=== PATIENT | male | born 1970 | race Two or more races ===

== ENCOUNTER 2024-06-27 16:27 | Emergency (ER) | payer MEDICAID, SELFPAY ==
[2024-06-27 16:29] VITALS: BMI 31.9
[2024-06-27 16:52] VITALS: BP 142/88; PULSE 99; RESP 18; TEMP 36.9; O2SAT 97; BMI 30.1
--- NOTE | 2024-06-27 17:10 | XR_ITS ---
Examination: Clavicle 2 views, left Technique: Clavicle AP, angled up AP, 2 views Exam date and time: June 27, 2024 1723 hours INDICATIONS: Left clavicle pain today. FINDINGS: No clavicle fracture. No AC joint separation Moderate narrowing glenohumeral joint IMPRESSION: Moderate narrowing glenohumeral joint
--- NOTE | 2024-06-27 17:10 | XR_ITS ---
Examination: PA lateral chest 2 views TECHNIQUE: Upright PA lateral chest 2 views Exam date and time: June 27, 2024 1727 hours INDICATIONS: Chest pain today. FINDINGS: Normal heart size Lungs are clear. The osseous structures are intact IMPRESSION: No active disease
--- NOTE | 2024-06-27 17:11 | PD.EDRME ---
Rapid Medical Screening Exam RME Arrival date/time: 06/27/24 16:27 53-year-old male presents to the emergency department complaints of left clavicular pain and upper chest wall pain for approximately 1 month Chief Complaint: Neck Pain/Injury Time Seen by Provider: 06/27/24 17:05 Vital signs: Vital Signs Temperature 98.5 F 06/27/24 16:52 Pulse Rate 99 06/27/24 16:52 Respiratory Rate 18 06/27/24 16:52 Blood Pressure 142/88 H 06/27/24 16:52 Pulse Oximetry (%) 97 06/27/24 16:52 Oxygen Delivery Method Room Air 06/27/24 16:52
[2024-06-27 17:55] LABS: Basophils % (Auto) 1 % (0-2.5); Eosinophils # (Auto) 0.3 Thou/mm3 (0.0-0.5); Eosinophils % (Auto) 4 % (0-10); Hematocrit 48.1 % (41.0-53.0); Hemoglobin 17.4 g/dL (13.5-16.0); Immature Granulocytes % (Auto) 1 % (0-0); Immature Granulocytes Auto 0.05 Thou/mm3 (0.00-0.00); Lymphocytes # (Auto) 3.1 Thou/mm3 (1.0-4.8); Lymphocytes % (Auto) 40 % (10-50); Mean Corpuscular HGB Conc 36.2 g/dl (31.0-37.0); Mean Corpuscular Hemoglobin 29.8 pg (25.0-35.0); Mean Corpuscular Volume 83 fL (80-100); Monocytes # (Auto) 0.7 Thou/mm3 (0.0-0.8); Monocytes % (Auto) 9 % (0-12); Neutrophils # (Auto) 3.5 Thou/mm3 (1.8-7.7); Neutrophils % (Auto) 45 % (37-80); Nucleated Red Blood Cell % 0 /100 WBC (0); Platelet Count 228 Thou/mm3 (140-440); RDW Standard Deviation 34.9 fL (35.1-43.9); Red Blood Count 5.83 Miln/mm3 (4.50-5.90); White Blood Count 7.7 Thou/mm3 (3.8-10.6)
[2024-06-27 18:19] LABS: Alanine Aminotransferase 53 U/L (10-49); Albumin, Serum 4.7 gm/dL (3.5-5.0); Albumin/Globulin Ratio 1.7 (1.2-2.2); Alkaline Phosphatase 100 U/L (46-116); Anion Gap 10 (7-16); Aspartate Amino Transferase 26 U/L (0-34); BUN/Creatinine Ratio 9 Ratio (12-20); Bilirubin,Total 0.5 mg/dL (0.3-1.2); Blood Urea Nitrogen 13 mg/dL (9-23); Calcium 10.1 mg/dL (8.3-10.6); Calcium (Corrected) 10.1 mg/dL (8.5-10.1); Carbon Dioxide 26.3 mMol/L (20.0-31.0); Chloride 98 mMol/L (98-107); Creatinine (Component) 1.5 mg/dL (0.6-1.3); Estimated Creatinine Clearance 62.7 mL/min (>60); Globulin 2.7 gm/dL (2.3-3.5); Glucose 365 mg/dL (74-106); Osmolality,Calculated 283 (275-295); Potassium 4.5 mMol/L (3.4-5.1); Sodium 134 mMol/L (136-145); Total Protein 7.4 gm/dL (5.7-8.2); Troponin I < 0.020 ng/mL (0.0-0.045); eGFR 56 See Note
[2024-06-27 20:19] VITALS: BP 136/90; PULSE 93; RESP 18; O2SAT 98
--- NOTE | 2024-06-27 21:32 | EDNOTE_ITS ---
ED Neck Injury Pain RME/HPI General Chief Complaint: Neck Pain/Injury Stated Complaint: NECK PAIN X 1 MONTH Time Seen by Provider: 06/27/24 17:05 Source: patient Arrival date/time: 06/27/24 16:27 Mode of arrival: ambulatory Limitations: no limitations RME / HPI RME / HPI Narrative: 06/27/24 16:27 53-year-old male presents to the emergency department complaints of left clavicular pain and upper chest wall pain for approximately [address] Armando?s Main ED Evaluation: 53-year-old male with h/o HTN, GERD, who presents to the ED for complaints of left clavicle pain. Patient denies any trauma or injury. 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 He denies any pain when rising his left arm. Denies any other associated symptoms or medical complaints. He is allergic to ibuprofen and takes tylenol for pain relief. Related Data Previous Rx's ?Medication ?Instructions ?Recorded acetaminophen 500 mg capsule 1,000 mg (2 x 500 mg) PO TID #30 04/27/23 caps acetaminophen 500 mg capsule 1,000 mg (2 x 500 mg) PO Q8HR PRN 08/27/23 pain #30 caps hydrocodone 5 mg-acetaminophen 325 1 tab PO BID PRN pa in #6 tabs 08/28/23 mg tablet oxycodone 5 mg capsule 5 mg PO BID PRN pain 4 days #7 caps 06/27/24 Allergies Allergy/AdvReac Type Severity Reaction Status Date / Time ibuprofen Allergy Mild Rash Verified 06/27/24 16:34 Review of Systems Review of Systems Systems Reviewed: All systems reviewed, normal except as documented Past Medical History Past Medical History NEUROLOGIC: Negative Neurological Disorders CARDIAC: Positive Hypertension; Negative Cardiac Disorders or Congestive Heart Failure RESPIRATORY: Negative Chronic Obstructive Pulmonary Disease (COPD) or Asthma GASTROINTESTINAL: Positive Gastrointestinal Disorders and Gastroesophageal Reflux Disease GENITOURINARY: Positive Kidney Stones; Negative Renal Disease ENDOCRINE: Negative Diabetes Mellitus Type 1 or Diabetes Mellitus Type 2 HEMATOLOGIC: Negative Sickle Cell Disease Social History SMOKING STATUS: Former smoker ED Exam Narrative Physical exam: GENERAL APPEARANCE: alert and oriented x 4, well-developed, well-nourished, no acute distress VITALS: All vitals were reviewed and the pulse ox is 98% on room air, which is normal according to my interpretation. HEENT: Normocephalic, atraumatic; pupils equal, round, reactive to light; EOMI; mucous membranes pink, moist; oropharynx clear NECK: Supple LUNGS: CTABL; no wheezes, no rales, no rhonchi HEART: Regular rate, regular rhythm; normal S1, S2; no murmurs ABDOMEN: non distended; normal BS; soft, no tenderness, no guarding, no rebound; no masses, no organomegaly, no hernia BACK: no CVA tenderness EXTREMITIES: atraumatic; no edema NEUROLOGIC: awake; alert and oriented x4; cranial nerves II-XII grossly intact; no focal sensory or motor deficits PSYCHIATRIC: appropriate mood and affect SKIN: warm, dry, normal color; no rashes General Limitations: Present no limitations Course Course Course Narrative: CXR is ordered for determining etiology of mild chest pain. Quality Measures none Orders Category Date Time Status XR chest 2V Stat Exams 06/27/24 17:10 Completed XR clavicle LT Stat Exams 06/27/24 17:10 Completed CBC Stat Lab 06/27/24 17:39 Completed CMP [Comprehensive Metabolic Panel] Stat Lab 06/27/24 17:39 Completed Troponin I Stat Lab 06/27/24 17:39 Completed Vital Signs Vital signs: Vital Signs Temperature 98.5 F 06/27/24 16:52 Pulse Rate 99 06/27/24 16:52 Respiratory Rate 18 06/27/24 16:52 Blood Pressure 142/88 H 06/27/24 16:52 Pulse Oximetry (%) 97 06/27/24 16:52 Oxygen Delivery Method Room Air 06/27/24 16:52 Neck Pain MDM Narrative MDM Narrative:: Scribe Attestation: I, Roland Benz, am scribing for and in the presence of Dr. Armando. Provider Notation: Although this document has been carefully reviewed, there may still be some phonetic and other typographical errors. These errors are purely grammatical due to imperfections in the software program and should not be construed in any way to compromise the substance of the patient's medical care during this visit. Patient data External records reviewed:: [facility] previous records Clinical information provided by:: patient Social determinants that could affect healthcare access:: none Patient has the following chronic illnesses:: See PMH How is presenting disease/condition affected by chronic disease/condition?: uneffected by Evaluation data The following diagnostics were reviewed and interpreted by me:: lab results and radiology exam(s) Lab and/or radiology exams considered but not ordered:: na Interpretation Summary: I personally reviewed the radiology data and agree with the radiologist's interpretation. Examination: PA lateral chest 2 views TECHNIQUE: Upright PA lateral chest 2 views Exam date and time: June 27, 2024 1727 hours INDICATIONS: Chest pain today. FINDINGS: Normal heart size Lungs are clear. The osseous structures are intact IMPRESSION: No active disease Examination: Clavicle 2 views, left Technique: Clavicle AP, angled up AP, 2 views Exam date and time: June 27, 2024 1723 hours INDICATIONS: Left clavicle pain today. FINDINGS: No clavicle fracture. No AC joint separation Moderate narrowing glenohumeral joint IMPRESSION: Moderate narrowing glenohumeral joint Medications / Prescriptions Medications or Prescriptions considered but not ordered:: na Medication administrations:: as above, if any Consultations Consultation(s) initiated? (list below): No Diagnosis Neck Differential Diagnosis: other (Clavicular fx, AC separation, rotator cuff injury, deltoid muscle strain) Most likely diagnosis given after review of the tests above:: See clinical impression below Admission Indicated Admission indicated?: not indicated Admission Request Was there a request for admission?: No Disposition Plan Disposition Plan: Discharge Discharge Attestation Discharge Attestation: The patient and all family members were given an opportunity to ask questions and understood the discharge instructions. Discharge instructions specifically effects, indications for sooner follow up or return to the emergency department, and the expected course of current diagnosis. Patient condition: Stable Discharge Plan Plan Patient Disposition: HOME (Self Care) Disposition Comment: Stable for discharge home Patient condition on transfer: Stable Prescriptions/Referrals Prescriptions/Med Rec: New oxycodone 5 mg capsule 5 mg PO BID MDD 2 tabs PRN (Reason: pain) 4 Days Qty: 7 0RF No Action acetaminophen 500 mg capsule 1,000 mg PO TID Qty: 30 0RF acetaminophen 500 mg capsule 1,000 mg PO Q8HR PRN (Reason: pain) Qty: 30 0RF hydrocodone-acetaminophen 5-325 mg tablet 1 tab PO BID MDD 10mg PRN (Reason: pain) Qty: 6 0RF Referrals: [facility] [Outside] - In 1 week Problem List Clinical Impression: Clavicle pain Patient/Caregiver Discharge Instructions Discharge Activity: activity as tolerated Education Materials: The Shoulder Joint Additional Instructions: Please return to the emergency department if you have any worsening or any further medical problems and we will help you. Otherwise you should follow-up with your primary care doctor within the next several days. It is very important that if this pain continues that you return to the ER so that we can perform more tests. You should take 2 tabs of the acetaminophen 500 mg and do that every 6 hours for pain. Unfortunately you cannot have ibuprofen because you are allergic to it. So I have called in a small prescription for a medicine called oxycodone. You can take up to 1 tab twice a day. You cannot drive after taking this medicine and you should not take it before going to work. It is best taken right before you go to bed. Print Language: Grenadian Stand Alone Forms: Alejandra Award Info., Patient Portal Info Letter
[2024-06-27 21:40] VITALS: BP 135/86; PULSE 76; RESP 18; TEMP 36.7; O2SAT 98
== END 2024-06-27 21:42 | disposition home or self-care (01) ==
PROVIDERS: Nurse Practitioner Primary Care; Emergency Provider Emergency Medicine
DX: M25.812 Other specified joint disorders, left shoulder (principal); R07.89 Other chest pain
CPT/HCPCS: 36415; 71046; 73000; 80053; 84484; 85025; 99283

== ENCOUNTER 2024-12-04 10:07 | Outpatient (AMB) | payer MEDICAID, SELFPAY ==
--- NOTE | 2024-12-04 10:26 | XR_ITS ---
Examination: Bilateral AP knees single view Left knee PA lateral axial 3 views TECHNIQUE: Bilateral AP knees standing single view Left knee PA standing flexion, standing lateral, axial left knee 3 views total 4 views Date and time: December 04, 2024 1047 hours, comparison August 27, 2023 INDICATIONS: Left knee pain 2 years. FINDINGS: Moderate osteopenia Mild narrowing medial joint space right knee Moderate narrowing medial joint space left knee Moderate osteoarthritis left patellofemoral joint No fractures IMPRESSION: Moderate narrowing medial and left patellofemoral joints
--- NOTE | 2024-12-04 10:26 | PD.ORTHCLVIS ---
Vital signs 12/04/24 11:12 Height 1.73 m Height Method Measured Weight 88.706 kg Weight Measurement Method Standing Scale BMI 29.7 BP 145/87 H Blood Pressure Source Automatic Cuff Blood Pressure Location Left Upper Arm Position Sitting Respiration 18 Pulse 70 Pulse Source Monitor Temp 97.4 F Temp Source Temporal Artery Scan Pulse Oximetry (%) 96 Oxygen Delivery Method Room Air Med/Allergies Allergies & Medications Allergies ibuprofen Allergy (Mild, Verified 12/04/24 11:14) Rash Medication Reconciliation acetaminophen 650 mg tablet,extended release 650 mg PO Q12H 12/04/24 [History Confirmed 12/04/24] losartan 50 mg-hydrochlorothiazide 12.5 mg tablet 1 tab PO QDAY 12/04/24 [History Confirmed 12/04/24] metformin 1,000 mg tablet 1,000 mg PO QDAY 12/04/24 [History Confirmed 12/04/24] omeprazole 20 mg tablet,delayed release 20 mg PO QDAY 12/04/24 [History Confirmed 12/04/24] Exam Exam Patient is in no acute distress and is cooperative with the examination today. Breathing is nonlabored. Patient has a normal mood and affect. Bilateral extremities were evaluated and demonstrates sensation intact to light touch. Palpable pedal pulses are present. No significant edema is present. Bilateral hips were examined. The patient has no pain with log roll of the hips. Internal rotation to 30 degrees and external rotation to 30 degrees is painless. Negative FADIR. Right knee was examined today. The right knee is in reasonable alignment. Range of motion from 0-120 degrees. Knee is stable to varus and valgus as well as AP translation with <5mm. Patient has a negative McMurrays. There is no pain with patellofemoral compression and no crepitus noted. The knee is nontender to palpation. Left knee was examined today. The left knee is in varus alignment. Range of motion from 0-115 degrees. Knee is stable to varus and valgus as well as AP translation with <5mm. Patient has a negative McMurrays. There is no pain with patellofemoral compression and no crepitus noted. The knee is tender to palpation medially. Nonweightbearing x-rays from [facility] imaging from last year were reviewed. This demonstrates mild joint space narrowing. Assessment and Plan Problem List (1) Arthritis of left knee: Status: Acute Plan: Patient is a 54-year-old male with left knee pain and left knee arthritis. The last nonweightbearing x-rays demonstrate mild joint space narrowing and arthritis. We will get new x-rays that are weightbearing. We would like to see him back for injections at the next visit. We Will need authorization for injections Office Procedures GNS Level of Care Nursing/Assessment Patient Status: Initial/New Patient Nursing Assessment/Reassesment: Medication Reconciliation, Orthostatic Vitals, Update PMH in EMR and Vital Signs Coordination of Care: Complex Care and Chronic Disease 1-5, Education Complex Pt/Fam, Consent,records obtained, informed consent, Education Simp Pt/Fam, Lab and Imaging orders, Results/Orders obtained and Staff clarify orders Special Needs: Language special needs New Patient Charge New Patient Point Assignment: 1134 New Patient Point Charge: EXHIBIT DISPLAY REPRESENTATIVE Level 4 (8299-6061) MA Intake Visit Data Collection New Patient or Established: New Patient (never been to [facility]) Reason for Visit:: DERANGEMENT LEFT KNEE Seen by Clinical Staff ONLY (RN/MA): No [employer]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 PCP or OBGYN visit in last 3 months: Yes Hx Now: No Do You Feel Safe at Home: Yes Authorities Contacted: N/A Questionairres Past Medical History Past Medical History Have you ever been diagnosed with any of the following: Cardiology Problems Congestive Heart Failure: No Hypertension: Yes Respiratory Problems Chronic Obstructive Pulmonary Disease (COPD): No Asthma: No Stomache/Intestinal Problems Gastroesophageal Reflux Disease: Yes Genital/Urinary Problems Renal Disease: No Kidney Stones: Yes Endocrine Problems Diabetes Mellitus Type 1: No Diabetes Mellitus Type 2: No Blood Problems Sickle Cell Disease: No Subjective Visit Visit for: new patient and knee Immunization / Flu Flu Vaccine in the Last 12 Months: Yes Flu Vaccine Exclusion Criteria: Already Received History of Present Illness Chief complaint: left knee pain Date of injury / onset of symptoms: 2 YEARS Patient is a pleasant 54working male with significant left knee pain. Been ongoing for several years. Has had several injections the last about 3 months. Last injection was 1 month ago. He has anaphylactic shock status and anti-inflammatories and cannot take them. Personal History Red flag PMH: none BMI Counceling provided: Yes Pain Pain level (0-10): 7 Pain location: inside (medial) Pain quality: sharp Associated signs & symptoms: none Ambulatory data Ambulatory device: none Treatments Number of previous injections: 2 Improvement with previous injections: Yes Number of Physical Therapy sessions: 7 Improvement with PT: Yes Improvement with NSAIDS: n/a Review of Systems Review of Systems: All systems negative unless otherwise noted in HPI.
[2024-12-04 11:12] VITALS: BP 145/87; PULSE 70; RESP 18; TEMP 36.3; O2SAT 96; BMI 29.7
== END 2024-12-04 10:33 | disposition home or self-care (01) ==
LOC: HODSRG 10:07
PROVIDERS: Supervising Provider Orthopaedic Surgery Adult Reconstructive Orthopaedic Surgery; Visit Provider Orthopaedic Surgery Adult Reconstructive Orthopaedic Surgery
DX: M17.12 Unilateral primary osteoarthritis, left knee (principal); M25.562 Pain in left knee; I10 Essential (primary) hypertension; K21.9 Gastro-esophageal reflux disease without esophagitis; Z87.442 Personal history of urinary calculi
CPT/HCPCS: 73564; 99204; G0463

== ENCOUNTER 2025-02-14 13:41 | Outpatient (AMB) | payer MEDICAID, SELFPAY ==
--- NOTE | 2025-02-14 13:54 | ORTHONT_ITS ---
Vital signs 02/14/25 13:55 Height 1.73 m Height Method Stated Weight 89.868 kg Weight Measurement Method Standing Scale BMI 30.0 BP 150/82 H Blood Pressure Source Automatic Cuff Blood Pressure Location Left Upper Arm Position Sitting Respiration 19 Pulse 75 Pulse Source Monitor Temp 97.8 F Temp Source Temporal Artery Scan Pulse Oximetry (%) 95 Oxygen Delivery Method Room Air Med/Allergies Allergies & Medications Allergies ibuprofen Allergy (Mild, Verified 02/14/25 13:55) Rash Medication Reconciliation acetaminophen 650 mg tablet,extended release 650 mg PO Q12H 12/04/24 [History Confirmed 02/14/25] losartan 50 mg-hydrochlorothiazide 12.5 mg tablet 1 tab PO QDAY 12/04/24 [History Confirmed 02/14/25] metformin 1,000 mg tablet 1,000 mg PO QDAY 12/04/24 [History Confirmed 02/14/25] omeprazole 20 mg tablet,delayed release 20 mg PO QDAY 12/04/24 [History Confirmed 02/14/25] Exam Exam Patient is in no acute distress and is cooperative with the examination today. Breathing is nonlabored. Patient has a normal mood and affect. Bilateral extremities were evaluated and demonstrates sensation intact to light touch. Palpable pedal pulses are present. No significant edema is present. Bilateral hips were examined. The patient has no pain with log roll of the hips. Internal rotation to 30 degrees and external rotation to 30 degrees is painless. Negative FADIR. Right knee was examined today. The right knee is in reasonable alignment. Range of motion from 0-120 degrees. Knee is stable to varus and valgus as well as AP translation with <5mm. Patient has a negative McMurrays. There is no pain with patellofemoral compression and no crepitus noted. The knee is nontender to palpation. Left knee was examined today. The left knee is in varus alignment. Range of motion from 0-115 degrees. Knee is stable to varus and valgus as well as AP translation with <5mm. Patient has a negative McMurrays. There is no pain with patellofemoral compression and no crepitus noted. The knee is tender to palpation medially. Nonweightbearing x-rays from [facility] imaging from last year were reviewed. This demonstrates mild joint space narrowing. Assessment and Plan Problem List (1) Arthritis of left knee: Status: Acute Plan: Patient is a 54-year-old male with left knee pain and left knee arthritis. The last weightbearing x-rays demonstrate mild joint space narrowing and arthritis. We will get new x-rays that are weightbearing. Recommend knee cortisone injection as patient would like to proceed with conservative treatment at this time. The risks and benefits of the procedure were reviewed with the patient and patient gave verbal consent to continue with the procedure. Procedure: performed by Dr. Becker Using sterile technique the left knee was thoroughly prepped with alcohol, and approximately 1 cc of Depo-Medrol 80mg/mL and 4 cc of 0.2% ropivacaine was injected without resistance into the medial tibial femoral joint space. The patient tolerated the procedure. Office Procedures GNS Level of Care Nursing/Assessment Patient Status: Established Patient Nursing Assessment/Reassesment: Medication Reconciliation, Update PMH in EMR and Vital Signs Coordination of Care: Complex Care and Chronic Disease 1-5, Education Complex Pt/Fam, Consent,records obtained, informed consent, Results/Orders obtained and Staff clarify orders Special Needs: Language special needs Established Patient Charge Established Patient Point Assignment: 95 Established Patient Point Charge: EP Level 3 (80-115) Surgical Proc/IM SQ injection Minor Surgical Procedure: Yes (KNEE INJECTION) Medication Given Medication Given Medication Given: Yes Documented Dose Given: 1 Route: Infiitration Medication Given Medication Given Medication Given: Yes Documented Dose Given: 4 Route: Infiitration Office Meds methylprednisolone acetate 80 mg/mL suspension for injection Performing Provider: Chele Becker MD Performing Location: [facility] Administered by: Chele Becker MD on 02/14/25 14:18 Dose Route Admin Location Dispensed Lot Number Expiration Date Pack age [facility] Medication Aid 80 mg intra-articular 1 mL [id number] 10/24/26 [address]-8 [id number] [employer] ropivacaine (PF) 2 mg/mL (0.2 %) injection solution Performing Provider: Chele Becker MD Performing Location: [facility] Administered by: Chele Becker MD on 02/14/25 14:18 Dose Route Admin Location Dispensed Lot Number Expiration Date Pack age [facility] Medication Aid 20 mL Infiltration 20 mL [id number] 04/26/27 53659-266-06 [id number] [facility] Intake Visit Data Collection New Patient or Established: Established Patient (seen at [facility] within 3 years) Reason for Visit:: DERANGEMENT LEFT KNEE Seen by Clinical Staff ONLY (RN/MA): No 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 PCP or OBGYN visit in last 3 months: Yes Hx Now: No Do You Feel Safe at Home: Yes Authorities Contacted: N/A Questionairres Past Medical History Past Medical History Have you ever been diagnosed with any of the following: Cardiology Problems Congestive Heart Failure: No Hypertension: Yes Respiratory Problems Chronic Obstructive Pulmonary Disease (COPD): No Asthma: No Stomache/Intestinal Problems Gastroesophageal Reflux Disease: Yes Genital/Urinary Problems Renal Disease: No Kidney Stones: Yes Endocrine Problems Diabetes Mellitus Type 1: No Diabetes Mellitus Type 2: No Blood Problems Sickle Cell Disease: No Subjective Visit Visit for: follow up visit and knee (LEFT) Immunization / Flu Flu Vaccine in the Last 12 Months: Yes Flu Vaccine Exclusion Criteria: Already Received History of Present Illness Chief complaint: left knee pain Date of injury / onset of symptoms: 2 YEARS Patient is a pleasant 54working male with significant left knee pain. Been ongoing for several years. Has had several injections withthe last about 3 months. He has anaphylactic shock with anti-inflammatories and cannot take them. He is getting over 3 months of relief with the last injections Personal History Red flag PMH: none BMI Counceling provided: Yes Pain Pain level (0-10): 7 Pain location: inside (medial) Pain quality: sharp Associated signs & symptoms: none Ambulatory data Ambulatory device: none Treatments Number of previous injections: 2 Improvement with previous injections: Yes Number of Physical Therapy sessions: 7 Improvement with PT: Yes Improvement with NSAIDS: n/a Review of Systems Review of Systems: All systems negative unless otherwise noted in HPI.
[2025-02-14 13:55] VITALS: BP 150/82; PULSE 75; RESP 19; TEMP 36.6; O2SAT 95
== END 2025-02-14 14:11 | disposition home or self-care (01) ==
LOC: HODSRG 13:41
PROVIDERS: Supervising Provider Orthopaedic Surgery Adult Reconstructive Orthopaedic Surgery; Visit Provider Orthopaedic Surgery Adult Reconstructive Orthopaedic Surgery
DX: M25.562 Pain in left knee (principal); M17.12 Unilateral primary osteoarthritis, left knee; M25.862 Other specified joint disorders, left knee; I10 Essential (primary) hypertension
CPT/HCPCS: 20610; 99213; J1010; J2795; G0463

== ENCOUNTER 2025-03-27 09:45 | Emergency (ER) | payer MEDICAID, SELFPAY ==
[2025-03-27 09:46] VITALS: BMI 34.1
[2025-03-27 09:57] VITALS: BP 156/92; PULSE 65; RESP 18; TEMP 36.8; O2SAT 97; BMI 29.6
--- NOTE | 2025-03-27 09:58 | XR_ITS ---
Examination: CT abdomen and pelvis without contrast. Coronal 3-D reconstructions. Sagittal 2-D reconstructions. Date and time of exam: March 27, 2025, 1051 hours, comparison April 27, 2023 INDICATIONS: Left lower quadrant abdominal pain beginning 3 days ago, history bilateral renal calculi, history 3 mm calculus in the urinary bladder on CT examination April 27, 2023 CTDI: vol (mGy): 7.63 DLP: (mGycm): 481 Technique: Axial images of the abdomen have been obtained, 3 mm slice thickness Intravenous contrast material has not been administered. Low dose protocols were performed. One or more of the following dose reduction techniques were used; automated exposure control, adjustment of the mA and/or KV according to patient size, use of iterative reconstruction technique. Findings: No visualized liver or splenic lesion No gallstones No pancreatic mass or peripancreatic edema Normal adrenal glands Mild renal scar formation 34 mm left renal cyst, 23 mm right renal cyst 5 mm 2 mm left renal calculi 3 mm 1 mm right renal calculi Mild bilateral hydronephrosis although no ureteral calculi Normal appendix No bowel obstruction or diverticulitis Normal seminal vesicles No significant prostatomegaly Urinary bladder wall thickening up to 11 mm Moderate osteopenia IMPRESSION: Bilateral renal calculi Mild bilateral hydronephrosis although no ureteral calculi, consider urinary tract infection Cystitis pattern Normal appendix
--- NOTE | 2025-03-27 10:04 | PD.EDABDPN ---
ED Abdominal Pain RME/HPI General Chief Complaint: Abdominal Pain Stated complaint: LOWER ABD PAIN X3DAYS WITH NAUSEA Time seen by provider: 03/27/25 09:49 Arrival date/time: 03/27/25 09:45 54-year-old male presents to the emergency department today for complaints of left lower quadrant abdominal pain ongoing x 3 days. Patient ports no chest pain no shortness of breath no upper abdominal pain Limitations: no limitations Related Data Home Medications ?Medication ?Instructions ?Recorded ?Confirmed acetaminophen 650 mg 650 mg PO Q12H 12/04/24 02/14/25 tablet,extended release losartan 50 mg-hydrochlorothiazide 1 tab PO QDAY 12/04/24 02/14/25 12.5 mg tablet metformin 1,000 mg tablet 1,000 mg PO QDAY 12/04/24 02/14/25 omeprazole 20 mg tablet,delayed 20 mg PO QDAY 12/04/24 02/14/25 release Previous Rx's ?Medication ?Instructions ?Recorded hydrocodone 5 mg-acetaminophen 325 1 tab PO BID PRN pain #8 tabs 03/27/25 mg tablet metoclopramide HCl 10 mg tablet 10 mg PO Q6H PRN nausea and 03/27/25 (Reglan) vomiting #30 tabs Allergies Allergy/AdvReac Type Severity Reaction Status Date / Time ibuprofen Allergy Mild Rash Verified 03/27/25 09:48 Review of Systems Review of Systems Systems Reviewed: All systems reviewed, normal except as documented Constitutional Constitutional: Reports system reviewed and no additional complaints, except as documented, Denies fever(s) and Denies headache(s) Eyes Eyes: Reports system reviewed and no additional complaints, except as documented and Denies blurry vision ENT Ears, Nose, Mouth, and Throat: Reports system reviewed and no additional complaints, except as documented, Denies headache(s), Denies nasal congestion and Denies nasal discharge Cardiovascular Cardiovascular: Reports system reviewed and no additional complaints, except as documented, Denies chest pain and Denies dyspnea Respiratory Respiratory: Reports system reviewed and no additional complaints, except as documented, Denies chest congestion, Denies cough and Denies dyspnea Gastrointestinal Gastrointestinal: Reports system reviewed and no additional complaints, except as documented and Reports abdominal pain Integumentary/Breasts Skin/Breast: Reports system reviewed and no additional complaints, except as documented and Denies rash Neurologic Neurologic: Reports system reviewed and no additional complaints, except as documented, Reports as per HPI and Denies headache(s) Past Medical History Past Medical History NEUROLOGIC: Negative Neurological Disorders CARDIAC: Positive Hypertension; Negative Cardiac Disorders or Congestive Heart Failure RESPIRATORY: Negative Chronic Obstructive Pulmonary Disease (COPD) or Asthma GASTROINTESTINAL: Positive Gastrointestinal Disorders and Gastroesophageal Reflux Disease GENITOURINARY: Positive Kidney Stones; Negative Renal Disease ENDOCRINE: Negative Diabetes Mellitus Type 1 or Diabetes Mellitus Type 2 HEMATOLOGIC: Negative Sickle Cell Disease Social History SMOKING STATUS: Never smoker ED Exam General Limitations: Present no limitations General appearance: Present alert and in no apparent distress Head Head exam: Present atraumatic Eye Eye exam: Present normal appearance, PERRL and EOMI ENT ENT exam: Present normal exam, normal oropharynx and mucous membranes moist Neck Neck exam: Present normal inspection, full ROM and trachea midline Chest Chest inspection: Present normal inspection and symmetric chest wall rise Respiratory Respiratory exam: Present normal lung sounds bilaterally Cardiovascular Cardiovascular exam: Present regular rate, normal rhythm and normal heart sounds Abdominal Exam Abdominal exam: Present soft, tenderness and normal bowel sounds; Absent distention, guarding, rebound or rigidity Abdominal tenderness: Present LLQ Extremities Exam Extremities exam: Present normal inspection and full ROM Back Exam Back exam: Present normal inspection and full ROM Neurological Exam Neurological exam: Present alert, oriented X3 and CN II-XII intact Psychiatric Psychiatric exam: Present normal affect and normal mood Skin Skin exam: Present warm, dry, intact and normal color Course Quality Measures none Orders Category Date Time Status CT abdomen pelvis wo con Stat Exams 03/27/25 09:58 Completed CBC Stat Lab 03/27/25 10:21 Completed Comprehensive Metabolic Panel Stat Lab 03/27/25 10:21 Completed Lipase Stat Lab 03/27/25 10:21 Completed UA, C/S IF [Urinalysis, C/S if Indicated] Stat Lab 03/27/25 10:40 Completed Vital Signs Vital signs: Vital Signs Temperature 98.2 F 03/27/25 09:57 Pulse Rate 65 03/27/25 09:57 Respiratory Rate 18 03/27/25 09:57 Blood Pressure 156/92 H 03/27/25 09:57 Pulse Oximetry (%) 97 03/27/25 09:57 Oxygen Delivery Method Room Air 03/27/25 09:57 O2 saturation 97% room air within normal limits Abdominal Pain MDM MDM Narrative MDM Narrative:: 54-year-old male presents to the emergency department today for complaints of left lower quadrant abdominal pain ongoing x 3 days. Patient ports no chest pain no shortness of breath no upper abdominal pain On exam patient well-appearing does not appear look toxic patient does have localized tenderness to the left lower quadrant Lab work and imaging obtained no acute emergent findings noted Lab work shows no leukocytosis Imaging consistent with multiple kidney stones without any ureteral calculi Patient discharged home in no distress to follow-up with primary care doctor in the next 24 to 48 hours and for any worsening symptoms to return to the ER immediately Patient data External records reviewed:: [facility] previous records Clinical information provided by:: patient Social determinants that could affect healthcare access:: alcohol use (Prior use) Patient has the following chronic illnesses:: Diabetes hypertension How is presenting disease/condition affected by chronic disease/condition?: uneffected by Evaluation data The following diagnostics were reviewed and interpreted by me:: lab results and radiology exam(s) Lab and/or radiology exams considered but not ordered:: Labs and radiology obtained Interpretation Summary: Reviewed by me Medications / Prescriptions Medications or Prescriptions considered but not ordered:: Given Medication administrations:: Given Consultations Consultation(s) initiated? (list below): No Diagnosis Differential diagnosis abdominal pain: abdominal pain, pancreatitis and small bowel obstruction Most likely diagnosis given after review of the tests above:: Abdominal pain Admission Indicated Admission indicated?: not indicated Admission Request Was there a request for admission?: No Disposition Plan Disposition Plan: Discharge Discharge Attestation Discharge Attestation: The patient and all family members were given an opportunity to ask questions and understood the discharge instructions. Discharge instructions specifically effects, indications for sooner follow up or return to the emergency department, and the expected course of current diagnosis. Patient condition: Stable Discharge Plan Plan Patient Disposition: HOME (Self Care) Discharge Disposition comment: Stable Prescriptions/Referrals Prescriptions/Med Rec: New hydrocodone-acetaminophen 5-325 mg tablet 1 tab PO BID MDD 10mg PRN (Reason: pain) Qty: 8 0RF metoclopramide HCl [Reglan] 10 mg tablet 10 mg PO Q6H PRN (Reason: nausea and vomiting) Qty: 30 0RF No Action acetaminophen 650 mg tablet extended release 650 mg PO Q12H metformin 1,000 mg tablet 1,000 mg PO QDAY losartan-hydrochlorothiazide 50-12.5 mg tablet 1 tab PO QDAY omeprazole 20 mg tablet,delayed release (DR/EC) 20 mg PO QDAY Referrals: No Primary/Family,Physician [Primary Care Provider] - 03/28/25 Problem List Clinical Impression: Abdominal pain Patient/Caregiver Discharge Instructions Education Materials: Abdominal Pain Additional Instructions: Please follow up with your primary care doctor in the next 24-48hrs for any worsening symptoms return here immediately If your symptoms persist you need to have a follow-up with GI specialist Print Language: Nigerian Stand Alone Forms: Alejandra Award Info., Patient Portal Info Letter PA/MATTRESS FILLER Supervising Physician PA/ZBIGNIEW Supervising Physician: Dr. John
[2025-03-27 10:31] LABS: Basophils # (Auto) 0.0 Thou/mm3 (0.0-0.2); Basophils % (Auto) 0 % (0-2.5); Eosinophils # (Auto) 0.2 Thou/mm3 (0.0-0.5); Eosinophils % (Auto) 3 % (0-10); Hematocrit 46.2 % (41.0-53.0); Hemoglobin 16.3 g/dL (13.5-16.0); Immature Granulocytes Auto 0.02 Thou/mm3 (0.00-0.00); Lymphocytes # (Auto) 2.0 Thou/mm3 (1.0-4.8); Lymphocytes % (Auto) 28 % (10-50); Mean Corpuscular HGB Conc 35.3 g/dl (31.0-37.0); Mean Corpuscular Hemoglobin 30.6 pg (25.0-35.0); Mean Corpuscular Volume 87 fL (80-100); Monocytes # (Auto) 0.6 Thou/mm3 (0.0-0.8); Monocytes % (Auto) 8 % (0-12); Neutrophils # (Auto) 4.2 Thou/mm3 (1.8-7.7); Neutrophils % (Auto) 61 % (37-80); Nucleated Red Blood Cell # 0.00 Thou/mm3 (0.00-0.00); Nucleated Red Blood Cell % 0 /100 WBC (0); Platelet Count 172 Thou/mm3 (140-440); RDW Standard Deviation 37.2 fL (35.1-43.9); Red Blood Count 5.33 Miln/mm3 (4.50-5.90); White Blood Count 7.0 Thou/mm3 (3.8-10.6)
[2025-03-27 10:51] LABS: Alanine Aminotransferase 34 U/L (10-49); Albumin, Serum 5.0 gm/dL (3.5-5.0); Albumin/Globulin Ratio 2.5 (1.2-2.2); Alkaline Phosphatase 63 U/L (46-116); Anion Gap 9 (7-16); Aspartate Amino Transferase 23 U/L (0-34); BUN/Creatinine Ratio 9 Ratio (12-20); Bilirubin,Total 0.4 mg/dL (0.3-1.2); Blood Urea Nitrogen 9 mg/dL (9-23); Calcium 9.6 mg/dL (8.3-10.6); Calcium (Corrected) 9.6 mg/dL (8.5-10.1); Carbon Dioxide 25.2 mMol/L (20.0-31.0); Chloride 106 mMol/L (98-107); Creatinine (Component) 1.0 mg/dL (0.6-1.3); Estimated Creatinine Clearance 92.3 mL/min (>60); Globulin 2.0 gm/dL (2.3-3.5); Glucose 136 mg/dL (74-106); Lipase 30 U/L (12-53); Osmolality,Calculated 280 (275-295); Potassium 4.3 mMol/L (3.4-5.1); Sodium 140 mMol/L (136-145); Total Protein 7.0 gm/dL (5.7-8.2); eGFR > 60 See Note
[2025-03-27 12:05] LABS: Collection Type, Urine Clean Catch; Squamous Epithelial Cell,Urine 0 /hpf (0-5); WBC,Urine 0 /hpf (0-5)
[2025-03-27 12:10] LABS: Bilirubin,Urine Negative (Negative); Blood,Urine Negative (Negative); Clarity,Urine Clear (Clear/Hazy); Color,Urine Colorless (Lt Yel-Yel); Culture Indicated,Urine Not Indicated; Glucose, Urine Negative (Negative); Ketones,Urine Negative (Negative); Leukocyte Esterase,Urine Negative (Negative); Nitrite,Urine Negative (Negative); PH,Urine 7.0 (5.0-7.0); Protein,Urine Negative (Neg - Trace); RBC,Urine < 1 /hpf (0-3); Specific Gravity,Urine 1.006 (1.001-1.035); Urobilinogen,Urine Negative mg/dL (0.0-1.0)
== END 2025-03-27 13:19 | disposition home or self-care (01) ==
PROVIDERS: Nurse Practitioner Primary Care; Emergency Provider Emergency Medicine
DX: R10.32 Left lower quadrant pain (principal)
CPT/HCPCS: 36415; 74176; 80053; 81001; 83690; 85025; 99283